=== PATIENT | male | born 1965 | race Caucasian/White ===

== ENCOUNTER 2017-06-08 10:23 | Emergency (ER) | payer MEDICARE, OTHER ==
[~2017-06-08] VITALS: Ht 182.9 cm; Wt 89.4 kg
--- OUTSIDE RECORDS SUMMARY | ~2017-06-08 | XMS | Clinical Summary ---
Demographics + + + | Address | [address] | | | [place] [address] | + + + | Home Phone | | + + + | Preferred Language | Unknown | + + + | Marital Status | | + + + | Adventist Affiliation | Unknown | + + + | Race | Unknown | + + + | Ethnic Group | Unknown | + + + Author + + + | Author | [employer] | + + + | Organization | [facility] [employer] | + + + | Address | Unknown | + + + | Phone | Unavailable | + + + Support + + + + + | Name | Relationship | Address | Phone | + + + + + | Yolanda Montalvo | E[address] | | | | [place] | | | | | [phone] | | + + + + + Care Team Providers + +------+ + | Care Marketing Content Specialist Name | Role | Phone | + +------+ + | Delmer Pérez DO | PP | | + +------+ + Allergies Not on File Current Medications Not on file Active Problems Not on file Social History + +-------+ +--------+------+ | Tobacco Use | Types | Packs/Day | Years | Date | | | | | Used | | + +-------+ +--------+------+ | Never Assessed | | | | | + +-------+ +--------+------+ + + + | Sex Assigned at | Date Recorded | | | | + + + | Not on file | | + + + Last Filed Vital Signs + + + + | Vital Sign | Reading | Time Taken | + + + + | Blood Pressure | 132/90 | 05/12/2009 1:43 PM PDT | + + + + | Pulse | - | - | + + + + | Temperature | - | - | + + + + | Respiratory Rate | - | - | + + + + | Oxygen Saturation | - | - | + + + + | Inhaled Oxygen | - | - | | Concentration | | | + + + + | Weight | 85.3 kg (188 lb) | 05/12/2009 1:43 PM PDT | + + + + | Height | 188 cm (6' 2") | 05/12/2009 1:43 PM PDT | + + + + | Body Mass Index | 24.14 | 05/12/2009 1:43 PM PDT | + + + + Plan of Treatment Not on file Results Not on filefrom Last 3 Months Insurance + +--------+ +------+-------+ + | Payer | Benefi | Subscriber | Type | Phone | Address | | | t Plan | ID | | | | | | / | | | | | | | Group | | | | | + +--------+ +------+-------+ + | MEDICARE | MEDICA | xxxxxxxxxx | | | [address] | | | RE | | | | [place] [id number] | | | IP-OP | | | | | + +--------+ +------+-------+ + + +--------+ +--------+ + + | Guarantor Name | Accoun | Relation to | Date | Phone | Billing Address | | | t Type | Patient | of | | | | | | | | | | + +--------+ +--------+ + + | DAVIAN MONTALVO | Person | Self | [birth year] | Work: | [address] | | | 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
--- OUTSIDE RECORDS SUMMARY | ~2017-06-08 | XMS | Clinical Summary ---
Demographics + + + | Address | [address] | | | [place] [address] | + + + | Home Phone | | + + + | Preferred Language | Unknown | + + + | Marital Status | | + + + | Religion Affiliation | Unknown | + + + | Race | Unknown | + + + | Ethnic Group | Unknown | + + + Author + + + | Author | [employer] | + + + | Organization | [facility] [employer] | + + + | Address | Unknown | + + + | Phone | Unavailable | + + + Support + + + + + | Name | Relationship | Address | Phone | + + + + + | Yolanda Montalvo | ECON | [address] | | | | | [place] | | | | | [phone] | | + + + + + Care Team Providers + +------+ + | Care Emergency Department Director Name | Role | Phone | + [...] RE | | | | [place] [phone] | | | IP-OP | | | [...] [place] | | | [birth year] Home: | [phone] | | | | | | | | | | | | | [phone] | | | | | | | [phone] | | + +--------+ +--------+ + +
[~2017-06-08 10:23] MED LIST: AMLODIPINE BESYL5 MG PO; AUGMENTIN 875-1 EACH PO; BUDEPRION XL150 MG PO; CARVEDILOL12.5 MG PO; CARVEDILOL25 MG PO; DILAUDID2 MG PO; KEFLEX500 MG PO; LISINOPRIL-HCT1 EAC2 PO; LISINOPRIL-HCT1 EACH PO; LISINOPRIL20 MG PO; MELOXICAM15 MG PO; NEURONTIN800 MG PO; NORCO 5-325 TA1 EACH PO; NORTRIPTYLINE H75 MG PO; ONDANSETRON HCL4 MG PO; PERCOCET 7.5-31 EACH PO; PROMETHAZINE HC25 MG PR; ZOFRAN8 MG PO
== END 2017-06-08 10:57 | disposition home or self-care (01) ==
LOC: ED 10:23
DX: S81.812D Laceration without foreign body, left lower leg, subsequent encounter (principal); I10 Essential (primary) hypertension; F17.200 Nicotine dependence, unspecified, uncomplicated; Z79.899 Other long term (current) drug therapy; W22.8XXD Striking against or struck by other objects, subsequent encounter
CPT/HCPCS: 99282

== ENCOUNTER 2018-02-09 11:16 | Emergency (ER) | payer MEDICARE, OTHER ==
[~2018-02-09] VITALS: Ht 182.9 cm; Wt 82.5 kg
[~2018-02-09 11:16] MED LIST changes: +TAMSULOSIN HCL0.4 MG PO
--- OUTSIDE RECORDS SUMMARY | 2018-02-09 11:22 | XMS ---
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 Melody VISIT COUNT (12 MO.) [address] [place] [address] TOTAL 5 NOTE: Visits indicate total known visits. ED/UCC VISIT TRACKING (12 MO.) 02/09/2018 11:17 [facility] TYPE: Emergency COMPLAINT: - VOMITING/URINATION PROBLEM 01/23/2018 15:32 [facility] TYPE: Emergency COMPLAINT: - WEAKNESS,BLOOD PRESSURE PROBLEM 06/17/2017 00:00 [facility] TYPE: Emergency COMPLAINT: - STITCHES REMOVAL 06/08/2017 10:23 [facility] TYPE: Emergency COMPLAINT: - WOUND CHECK DIAGNOSES: - Other nursing home (current) drug therapy - Essential (primary) hypertension - Nicotine dependence, unspecified, uncomplicated - Laceration without foreign body, left lower leg, initial encounter - Laceration without foreign body, left lower leg, subsequent encounter - Striking against or struck by other objects, initial encounter - Striking against or struck by other objects, subsequent encounter 06/05/2017 16:49 [facility] TYPE: Emergency COMPLAINT: - LT LEG LACERATION DIAGNOSES: - Essential (primary) hypertension - Encounter for immunization - Nicotine dependence, unspecified, uncomplicated - Laceration without foreign body, left lower leg, initial encounter - Other long term care social worker (current) drug therapy - Other foreign body or object entering through skin, initial encounter INPATIENT VISIT TRACKING (12 MO.) 01/23/2018 19:[address] [facility] [place] TYPE: Medical Surgical COMPLAINT: - ACUTE KIDNEY INJURY DIAGNOSES: - Essential (primary) hypertension - Viral intestinal infection, unspecified - Hypo-osmolality and hyponatremia - Dehydration - Viral intestinal infection, unspecified - Hyperkalemia - Essential (primary) hypertension - Neuralgia and neuritis, unspecified - Dehydration - Acute kidney failure, unspecified - Other long term care social worker (current) drug therapy - Hypo-osmolality and hyponatremia - Other nonspecific abnormal finding of lung field - Hyperkalemia - Other chronic pain - Other nonspecific abnormal finding of lung field - Nicotine dependence, cigarettes, uncomplicated - Nicotine dependence, cigarettes, uncomplicated - Other nursing home (current) drug therapy - Neuralgia and neuritis, unspecified - Other chronic pain [email or web address]
[2018-02-09] MEDS ORDERED: REGLAN10 MG PO (14:32)
== END 2018-02-09 15:02 | disposition home or self-care (01) ==
LOC: ED 11:16
PROC: 4A0D7LZ Measurement of Urinary Volume, Via Natural or Artificial Opening (ICD-10-PCS; principal; 2018-02-09)
DX: K52.9 Noninfective gastroenteritis and colitis, unspecified (principal); I10 Essential (primary) hypertension; Z86.19 Personal history of other infectious and parasitic diseases; F17.200 Nicotine dependence, unspecified, uncomplicated; Z79.899 Other long term (current) drug therapy
CPT/HCPCS: 51798; 80053; 81001; 83690; 85025; 96361; 96374; 99284-25; 99406; J2405; J7030

== ENCOUNTER 2018-10-13 08:00 | Day surgery (SDC) | payer MEDICARE ==
[~2018-10-13] VITALS: Ht 182.9 cm; Wt 83.9 kg
[~2018-10-13 08:00] MED LIST changes: +REGLAN10 MG PO
--- NOTE | 2018-10-13 09:56 | NUR ---
10/13/18 0956 Suzanne Kirk 0944- PT ARRIVES TO PACU NONAROUSABLE TO NOXIOUS STIMULI. RESP EVEN AND UNLABORED. OXYGEN SAT HIGH 90'S TO 100% ON 6L VIA MASK.
--- NOTE | 2018-10-15 10:32 | OR ---
[facility] [address], [place] [address] Signed DATE OF OPERATION: 10/13/2018 SURGEON: Fadi Bradley MD PREOPERATIVE DIAGNOSES: 1. Paternal uncle with colon cancer at age 58. 2. Personal history of colonic polyps in 2016 at age 50. 3. Tattoo at 25 cm. 4. Minimal diverticulosis. 5. Diarrhea. POSTOPERATIVE DIAGNOSES: 1. Tattoo at 25 cm. 2. A 3 to 5 mm polyps at proximal right colon, hepatic flexure; 110 cm, 38 cm, 36 cm, and 5 cm. 3. Minimal sigmoid diverticulosis. 4. Zftqduf-lk-igqaulld internal hemorrhoids. PROCEDURE: Colonoscopy with hot biopsy. ESTIMATED BLOOD LOSS: None. INDICATIONS: Davian is a 53-year-old gentleman, asked to see me for a followup colonoscopy. His paternal uncle had colon cancer at age 58. Davian had multiple colonic polyps removed at age 50 and has a tattoo at 25 cm. He is known to have minimal diverticulosis and some diarrhea. In the office, I gave Davian a pamphlet on colonoscopy and we looked at that together along with the risks including, but not limited to gas bloating, crampy abdominal pain, bleeding, perforation, requiring surgery, and missed diagnosis. In addition, we used 9 mg of Versed and 300 mcg of fentanyl for his previous colonoscopy, and he was still awake. He continues to have issues with chronic pain and requires daily marijuana. Consequently, we asked an anesthesia provider to help with increased monitoring sedation with propofol. That proved to be a louis decision. He had expressed understanding and wished to proceed. DESCRIPTION OF PROCEDURE: Davian was taken into our endoscopy suite and placed in the left lateral decubitus position. He was given IV sedation with propofol per our nurse emergency response technician. A digital Electronically Signed By: FADI BRADLEY MD 10/15/18 1032 PATIENT NAME: DAVIAN PRINCE OPERATIVE REPORT DATE OF : 67 REPORT #: [id number] PHYSICIAN: FADI BRADLEY MD PCP: KENY HALL MD REPORT IS CONFIDENTIAL AND NOT TO BE RELEASED WITHOUT AUTHORIZATION [facility] [address], [place] [address] Signed rectal exam was performed and his prostate gland is not enlarged. However, it is indurated. The left is more prominent than the right. The adult colonoscope was introduced and advanced all around into the cecum under direct visualization of camera without difficulty. His prep was good. The scope was then slowly withdrawn. The above-mentioned polyps were easily removed with the help of hot biopsy forceps. We could easily see the tattoo at 25 cm. No evidence of any recurrent polyps in that area. He does have some diverticula in the sigmoid colon. They were minimal in size, minimal in number, and scattered about. Upon retroflexion of scope, he does have dvezynn-wb-wlrfrxxm internal hemorrhoids. After this, the gas was suctioned out. Colonoscope removed. Davian tolerated the procedure quite well. RECOMMENDATIONS: Davian to follow up in 7 to 14 days to review his results. I suspect he will stay on the 5-year rotation. Fadi Bradley MD ALB/MODL /[id number] cc: MD Keny Torres MD Copies: FADI BRADLEY MD, MALCOLM MD ~ Electronically Signed By: FADI BRADLEY MD 10/15/18 1032 PATIENT NAME: DAVIAN PRINCE OPERATIVE REPORT DATE OF : 67 REPORT #: [id number] PHYSICIAN: FADI BRADLEY MD PCP: KENY HALL MD REPORT IS CONFIDENTIAL AND NOT TO BE RELEASED WITHOUT AUTHORIZATION
--- NOTE | 2018-10-16 15:25 | PATH ---
[facility] [address] [place] [address] Signed SPECIMEN(S): A COLON POLYP AT 110 CM SPECIMEN(S): B ASCENDING COLON POLYP SPECIMEN(S): C HEPATIC FLEXURE COLON POLYP SPECIMEN(S): D COLON POLYP AT 38 CM SPECIMEN(S): E COLON POLYP AT 36 CM SPECIMEN(S): F COLON POLYP AT 5 CM SPECIMEN SOURCE: A. COLON POLYP AT 110 CM B. ASCENDING COLON POLYP C. HEPATIC FLEXURE COLON POLYP D. COLON POLYP AT 38 CM E. COLON POLYP AT 36 CM F. COLON POLYP AT 5 CM CLINICAL HISTORY: No preop or clinical information is given on requisition. MICROSCOPIC DESCRIPTION: Histologic sections of all submitted blocks are examined by light microscopy. These findings, together with the gross examination, support the pathologic diagnosis. FINAL PATHOLOGIC DIAGNOSIS: A. Mucosa, colon at 110 cm, biopsy: - Tubular adenoma. B. Mucosa, ascending colon, biopsy: - Surface features suggestive but not diagnostic of hyperplastic polyp (See comment). C. Mucosa, colon at hepatic flexure, biopsy: - Tubular adenoma. D. Mucosa, colon at 38 cm, biopsy: - Tubular adenoma. E. Mucosa, colon at 36 cm, biopsy: - Tubular adenoma. F. Mucosa, colon at 5 cm, biopsy: - Hyperplastic polyp. COMMENT: B Multiple levels over three slides are examined. No adenomatous change or full thickness hyperplastic change is seen. LJA:cml:[id number] PATIENT NAME: DARIA PRINCE NICOLE PATHOLOGY DATE OF : 67 REPORT #: [id number] PHYSICIAN: JOLEEN GILBERT PCP: FRANCISCO HALL MD REPORT IS CONFIDENTIAL AND NOT TO BE RELEASED WITHOUT AUTHORIZATION [facility] [address], [place] [address] Signed GROSS DESCRIPTION: Six specimens are received in six containers, labeled "DP." A. The specimen, labeled "DP, colon polyp at 110 cm," is received in formalin and consists of two, 0.3 and 0.4 cm miguel fragments. Specimen is entirely submitted in cassette (A1). B. The specimen, labeled "DP, ascending colon polyp," is received in formalin and consists of a single 0.2 cm miguel fragment admixed with debris. Specimen is entirely submitted in cassette (B1). C. The specimen, labeled "DP, hepatic flexure polyp," is received in formalin and consists of two, 0.2 and 0.3 cm miguel fragments admixed with debris. Specimen is entirely submitted in cassette (C1). D. The specimen, labeled "DP, colon polyp at 38 cm," is received in formalin and consists of a single 0.3 cm miguel fragment. Specimen is entirely submitted in cassette (D1). E. The specimen, labeled "DP, colon biopsy at 36 cm," is received in formalin and consists of two, 0.2 and 0.3 cm miguel fragments. Specimen is entirely submitted in cassette (E1). F. The specimen, labeled "DP, colon biopsy at 5 cm," is received in formalin and consists of three, 0.2-0.3 cm miguel fragments. Specimen is entirely submitted in cassette (F1). AM (under the direct supervision of a pathologist) The Gross Description was prepared using a voice recognition system. The report was reviewed for accuracy; however, sound-alike word errors, addition and/or deletions may occur. If there is any question about this report, please contact Client Services. PERFORMING LABORATORY: The technical component was performed by [facility], [address] [place] [id number] (Beef Specialist: Lala Zamarripa MD; CLIA# [id number]). Professional interpretation was performed by [facility], [address] [address] (Beef Specialist: Kelby Saavedra MD; CLIA# [id number]). Diagnostician: Kelby Saavedra MD Pathologist Electronically Signed 10/16/2018 Copies: PATIENT NAME: DARIA PRINCE NICOLE PATHOLOGY DATE OF : 67 REPORT #: [id number] PHYSICIAN: JOLEEN PATHOLOGY PCP: FRANCISCO HALL MD REPORT IS CONFIDENTIAL AND NOT TO BE RELEASED WITHOUT AUTHORIZATION [facility] [address], [place] [address] Signed ~ PATIENT NAME: DARIA PRINCE PATHOLOGY DATE OF : 67 REPORT #: [id number] PHYSICIAN: JOLEEN GILBERT PCP: FRANCISCO HALL MD REPORT IS CONFIDENTIAL AND NOT TO BE RELEASED WITHOUT AUTHORIZATION
== END 2018-10-13 10:15 | disposition home or self-care (01) ==
LOC: OPS 08:00 → DS 08:00 → OPS 09:00 → DS 09:00 → OPS 10:15
PROVIDERS: Colon & Rectal Surgery
PROC: 0DBK8ZZ Excision of Ascending Colon, Via Natural or Artificial Opening Endoscopic (ICD-10-PCS; 2018-10-13)
PROC: 0DBL8ZZ Excision of Transverse Colon, Via Natural or Artificial Opening Endoscopic (ICD-10-PCS; 2018-10-13)
PROC: 0DBE8ZZ Excision of Large Intestine, Via Natural or Artificial Opening Endoscopic (ICD-10-PCS; principal; 2018-10-13 09:00)
DX: D12.2 Benign neoplasm of ascending colon (principal); D12.3 Benign neoplasm of transverse colon; D12.6 Benign neoplasm of colon, unspecified; K63.5 Polyp of colon; K57.30 Diverticulosis of large intestine without perforation or abscess without bleeding; R19.7 Diarrhea, unspecified; K64.8 Other hemorrhoids; I10 Essential (primary) hypertension; K21.9 Gastro-esophageal reflux disease without esophagitis; M19.90 Unspecified osteoarthritis, unspecified site; F17.210 Nicotine dependence, cigarettes, uncomplicated; F12.90 Cannabis use, unspecified, uncomplicated; G89.4 Chronic pain syndrome; Z98.890 Other specified postprocedural states; Z86.010 Personal history of colon polyps; Z80.0 Family history of malignant neoplasm of digestive organs; Z79.899 Other long term (current) drug therapy
CPT/HCPCS: J2250; J2704; J3010; J7120

== ENCOUNTER 2020-07-12 17:29 | Emergency (ER) | payer MEDICARE, OTHER ==
[~2020-07-12] VITALS: Ht 182.9 cm; Wt 90.7 kg
== END 2020-07-12 20:19 | disposition home or self-care (01) ==
LOC: ED 17:29
DX: S86.111A Strain of other muscle(s) and tendon(s) of posterior muscle group at lower leg level, right leg, initial encounter (principal); X58.XXXA Exposure to other specified factors, initial encounter; I10 Essential (primary) hypertension; F17.200 Nicotine dependence, unspecified, uncomplicated; Z79.899 Other long term (current) drug therapy
CPT/HCPCS: 99283

== ENCOUNTER 2021-05-13 10:25 | Day surgery (SDC) | payer MEDICARE, OTHER ==
[~2021-05-13] VITALS: Ht 182.9 cm; Wt 96.4 kg
[~2021-05-13 10:25] MED LIST changes: +ONDANSETRON ODT8 MG PO; +SILDENAFIL20 MG PO
--- NOTE | 2021-05-13 12:40 | NUR ---
05/13/21 1240 Mallorie Lua 1228-PATIENT ARRIVED TO PACU ON 10L MASK NONAROUSABLE ORAL AIRWAY IN PLACE PLAYING PRONE. DRESSING CDI TO LEFT LOWER BACK. SR. IVF INFUSING. 1231-PATIENT LAYING PRONE NONAROUSABLE MOVING HEAD NOT FOLLOWING COMMANDS ORAL AIRWAY REMOVED. 6L MASK RR EVEN. 1240-PATIENT AWAKE REPOSITIONED SELF TO BACK WITH RNS ASSISTANCE HOB ELEVATED.
--- NOTE | 2021-06-04 09:34 | PATH ---
[facility] [address] [facility] [place], [place] [address] Signed THIS IS AN ADDENDUM REPORT SPECIMEN(S): A BONE MARROW - CORE SPECIMEN(S): B BONE MARROW - ASPIRATION SPECIMEN(S): C FLOW CYTOMETRY, EDTA ASP CLINICAL HISTORY: 55-year-old male with polycythemia and leukocytosis. Evaluate MPN DIAGNOSIS SUMMARY: A. Peripheral blood - No abnormal morphologic findings. B. Bone marrow aspirate smears, bone marrow core biopsy and clot section: - Slightly hypercellular bone marrow with trilineage progressive hematopoiesis. - Negative for morphologic features of myelodysplastic syndrome (MDS). - Negative for definite morphologic features of myeloproliferative neoplasm. - Negative for increase in plasma cells or infiltrative bone marrow processes. - Please see Diagnostic Comment. DIAGNOSTIC COMMENT: The bone marrow is slightly hypercellular. However, trilineage progressive hematopoiesis is noted. No definite diagnostic features of myeloproliferative neoplasm are identified. Clinical concern for Myeloproliferative neoplasm (MPN) is noted. FISH for BCR/ABL and molecular studies for JAK2 with reflex to CALR and MPL are pending and will be reported in an addendum. This case is reviewed and dictated by Kely Reddy MD. Board-certified hematopathologist. NA:clm:C2NR PERIPHERAL BLOOD: HEMOGRAM ([facility], 05/13/2021): WBC 7.7 K/uL, RBC 5.63 M/uL, HGB 16.4 g/dL, HCT 49.3%, MCV 87.5 fL, MCH 29.1 pg, MCHC 33.2 g/dL, RDW 14.3%, PLT 217 K/uL, MPV 8.4 fL. DIFFERENTIAL (manual): 57% neutrophils, 35% lymphocytes, 6% monocytes, 1% eosinophils, 1% basophils. Review of the peripheral blood smear and the CBC data demonstrates that the RBCs are normal in number and are normocytic and normochromic with no anemia PATIENT NAME: DARIA PRINCE PATHOLOGY DATE OF : 67 REPORT #: [id number] PHYSICIAN: JOLEEN GILBERT PCP: FRANCISCO HALL MD REPORT IS CONFIDENTIAL AND NOT TO BE RELEASED WITHOUT AUTHORIZATION [facility] [address] [place], [place] [address] Signed present. No rouleaux formation is identified. No nucleated RBCs are seen. The WBCs are normal in number and distribution. The granulocytes show unremarkable morphology. No immature cells or blasts are seen. The platelets are normal in number and unremarkable in morphology. BONE MARROW: BONE MARROW ASPIRATE SMEARS: The bone marrow aspirate smears are adequately cellular for evaluation. Trilineage hematopoiesis is present with progressive ordinary maturation. There is no increase in blasts noted. The M:E ratio appears normal. No dyshematopoiesis is identified. The megakaryocytes are scattered and appear normal in number and morphology. BONE MARROW DIFFERENTIAL COUNT (200 cells): 2% blasts, 3% promyelocytes, 11% myelocytes, 33% segmented neutrophils, 10% lymphocytes, 1% monocytes, 3% eosinophils, 37% erythroid. BONE MARROW CORE BIOPSY AND CLOT SECTION (CELL BLOCK): The bone marrow core biopsy demonstrates slightly hypercellular bone marrow for age with an average of 70%. Trilineage hematopoiesis is present with progressive ordinary maturation. There are no lymphoid aggregates, granulomas, or metastatic tumor cells present. The megakaryocytes are scattered and appear normal in number and distribution. Occasional small micromegakaryocytes are encountered. The cell block shows similar findings. SPECIAL STAINS (performed with appropriate reactive control and show the following results): - Iron (aspirate smears): Storage iron present, negative for ring sideroblasts. - Iron (block B): Storage iron present, negative for ring sideroblasts. - Reticulin stain: Mild increase in bone marrow reticulin fibrosis (MF-1). IMMUNOHISTOCHEMICAL STAINS (performed on block A1 with appropriate reactive control): - CD34: Highlights scattered positive cells with no increase in blasts noted. - CD117: Highlights scattered positive cells. - CD71: Highlights erythroid precursors with normal pattern of distribution. - MPO: Highlights myeloid precursors with normal pattern of distribution. - Factor VIII: Highlights normal number of megakaryocytes. NA:clm FLOW CYTOMETRY: Bone marrow aspirate, flow cytometry: PATIENT NAME: DAIRA PRINCE PATHOLOGY DATE OF : 67 REPORT #: [id number] PHYSICIAN: JOLEEN PATHOLOGY PCP: FRANCISCO HALL MD REPORT IS CONFIDENTIAL AND NOT TO BE RELEASED WITHOUT AUTHORIZATION [facility] [address] [place], [place] [address] Signed - No increase in blasts (0.6% myeloblasts). - Normal myeloid maturation. - No atypical lymphoid cell population. - See comment. COMMENT: While no hematopoietic abnormality is detected in this study, correlation with clinical, morphologic, and genetic findings is recommended for full interpretation and to assess for disease processes not fully examined by flow cytometry analysis, including myelodysplastic syndrome and myeloproliferative neoplasm. FLOW CYTOMETRY ANALYSIS: FLOW DIFFERENTIAL (% Total CD45 vs. SSC gating): Myeloid 87%; Lymphoid 6%; Monocyte 2%; Dim CD45/Blast: 0.6%. Cell Count: 9.9 x 10*3/uL. POPULATION ANALYSIS: BLASTS: Analysis of the dim CD45 gate demonstrates 0.6% myeloblasts by CD34/CD117. LYMPHOID CELLS: The lymphocyte gate comprises 6% of total events and includes 89% T-cells with a CD4:CD8 ratio of 1.4:1 and normal orr T-cell antigen expression. 4% of lymphocytes are polyclonal B-cells with a kappa:lambda ratio of 1.3:1. The remainders are NK-cells. MYELOID CELLS: The myeloid population comprises 87% of the total events. No aberrant immunophenotypic expression is detected. MONOCYTES: The monocyte population comprises 2% of the total events. Monocytes are not increased. No aberrant immunophenotypic expression is detected. PLASMA CELLS: 0.2% plasma cells are detected in the screening gate neg-dimCD45/CD38. Plasma cells are CD45 dim and positive for CD19. ANTIBODIES USED: KAPPA, LAMBDA, CD20, CD10, CD19, CD23, CD38, CD16, CD56, CD8, CD5, CD2, CD4, CD7, CD3, CD14, CD33, CD13, HLADR, CD34, CD117, CD15, CD45. TOTAL ANTIBODIES USED: 23. JNB FINAL DIAGNOSIS PERFORMED BY: Kely Reddy MD, [facility], May 14 2021 11:29AM MOLECULAR / PCR: Pending, to be reported in an addendum. GROSS DESCRIPTION: Two specimens are received in two containers, labeled "DP." A. The specimen, labeled "DP, core," is received in formalin and consists of two cylindrical bone core fragments measuring 0.2 in diameter and 0.9 to 1.2 in length. The specimen is entirely PATIENT NAME: DARIA PRINCE PATHOLOGY DATE OF : 67 REPORT #: [id number] PHYSICIAN: JOLEEN PATHOLOGY PCP: FRANCISCO HALL MD REPORT IS CONFIDENTIAL AND NOT TO BE RELEASED WITHOUT AUTHORIZATION [facility] [address] [place], [place] [address] Signed submitted in cassette A1 following decalcification in Immunocal. Cold ischemic time: Cannot be determined because of lack of information Approximate time in formalin: Five hours B. The specimen, labeled "DP, clot," is received in formalin and consists of thickened clot material measuring 2.5 x 2.0 x 0.4 in aggregate. The specimen is filtered and entirely submitted in cassette B1. Bone marrow inventory also includes: Two peripheral smears, one EDTA tube bone marrow, two heparin tubes AT (under the direct supervision of a pathologist) The Gross Description was prepared using a voice recognition system. The report was reviewed for accuracy; however, sound-alike word errors, addition and/or deletions may occur. If there is any question about this report, please contact Client Services. ADDITIONAL NOTES: Immunohistochemical and/or in situ hybridization studies were performed on this case with the appropriate positive controls that react as expected. This test was developed and its performance characteristics determined by [facility]. It has not been cleared or approved by the U.S. Food and Drug Administration. The FDA has determined that such clearance or approval is not necessary. This test is used for clinical purposes. It should not be regarded as investigational or for research. [facility] is certified under the Clinical Laboratory Improvement Amendments of 1988 (CLIA) as qualified to perform high complexity clinical laboratory testing. This assay has not been validated for specimens that have been decalcified. In this case, certain antibodies were performed by both immunohistochemistry and flow cytometry analysis because flow cytometry analysis did not fully explain all the light microscopic findings. Immunohistochemistry aided in the analysis. Both methods are deemed medically necessary in this case. This test was developed and its performance characteristics determined by [facility]. It has not been cleared or approved by the US Food and Drug Administration. The FDA does not require this test to go through premarket FDA review. This test is used for clinical purposes. It should not be regarded as investigational or for research. This laboratory is certified under the Clinical Laboratory Improvement Amendments (CLIA) as qualified to perform high PATIENT NAME: DARIA PRINCE PATHOLOGY DATE OF : 67 REPORT #: [id number] PHYSICIAN: JOLEEN GILBERT PCP: FRANCISCO HALL MD REPORT IS CONFIDENTIAL AND NOT TO BE RELEASED WITHOUT AUTHORIZATION [facility] [address] [place] [phone] Signed complexity clinical laboratory testing. PERFORMING LABORATORY: The technical component was performed by [facility], [address] [address] (CLIA#: [id number]). Professional interpretation was performed by [facility], [facility], [address] [place] [address] (CLIA#: [id number]). A portion of the technical component was performed by [facility], [address] [place] [address] (CLIA# [id number]). A portion of the technical component was performed by [facility], [address] [place], [place] [address] [place] [address] (CLIA#: [id number]). Professional interpretation was performed by [facility], [facility], [address] [place] [address] (CLIA#: [id number]). IMAGES: A: [id number] A: [id number] REASON FOR ADDENDUM: To add results of additional testing. Bone marrow, cytogenetics: Karyotype: QNS Interpretation: QNS Test Detail: Metaphases Counted: N/A Metaphases Analyzed: N/A Metaphases Karyotyped: N/A Culture Type: N/A Banding Technique: N/A Banding Resolution: N/A The Accessioning Component, Technical Component Processing, Analysis and Professional Component of this test was completed at [facility] [place], [address] [place] [address], [place] / [address] / [phone] / CLIA #[id number] / Water Supervisor(s): Bon Hancock M.D. (Accession / CaseNo: [id number] / [id number]). The performance characteristics of this test have been determined by the performing laboratory. This test has not been approved by the FDA. The FDA has determined such clearance or approval is not necessary. This laboratory is CLIA certified to perform high complexity PATIENT NAME: DARIA PRINCE PATHOLOGY DATE OF : 67 REPORT #: [id number] PHYSICIAN: JOLEEN PATHOLOGY PCP: FRANCISCO HALL MD REPORT IS CONFIDENTIAL AND NOT TO BE RELEASED WITHOUT AUTHORIZATION [facility] [address] [place], [place] [address] Signed clinical testing. Images that may be included within this report are safety representative of the patient but not all testing in its entirety and should not be used to render a result. The CPT codes provided with our test descriptions are based on AMA guidelines and are for informational purposes only. Correct CPT coding is the sole responsibility of the billing libertarian. Please direct any questions regarding coding to the payer being billed. Bone marrow, BCR/ABL1/ASS1 t(9:22): Results: Normal Interpretation: t(9;22): Not Detected Fluorescence in situ hybridization (FISH) analysis was performed using a tricolor, dual fusion BCR/ABL1 probe set used to detect the (9;22) translocation associated with CML and less commonly ALL or AML. The tricolor probe set also detects derivative chromosome 9 deletions. Counts for all probe signals were within the normal reference range. This finding represents a NORMAL result. Probe Set Detail: BCR/ABL1/ASS1 t(9;22): nuc bernardo(ASS1,ABL1,BCR)x2[200] Comments: The results of this assay have been determined within the limitations described and should not be used interchangeably with resulting values from other methods or kits. These results are intended to be used as an adjunct to other concurrent testing in patient care management. Therefore, the presence or absence of a malignant disease cannot be determined based solely on these results. Clinical correlation is advised. Nuclei Scored: 200 Probe set: BCR/ABL1/ASS1 t(9;22) Scoring method: Computer assisted technology. CPT code: 21725 # of units: 1 All controls were within expected ranges. The Accessioning Component, Technical Component Processing and Professional Component of this test was completed at [facility] [place], [address] [place] [address], [place] / [address] / [phone] / CLIA #[id number] / Water Supervisor(s): Bon Hancock M.D. (Accession / PATIENT NAME: DARIA PRINCE PATHOLOGY DATE OF : 67 REPORT #: [id number] PHYSICIAN: JOLEEN PATHOLOGY PCP: FRANCISCO HALL MD REPORT IS CONFIDENTIAL AND NOT TO BE RELEASED WITHOUT AUTHORIZATION [facility] [address] [place] [address] Signed Case No: [id number] / [id number]). The Technical Component Analysis of this test was completed at [facility] [place], [facility], [address], [place], [place] / [address] / [phone] / CLIA# [id number] / Water Supervisor(s): Dr. Laci Aguilera. [facility] FISH test uses either FDA cleared and/or analyte specific reagent (ASR) probes. This test was developed and its performance characteristics determined by [facility] in [place], [place]. It has not been cleared or approved by the U.S. Food and Drug Administration (FDA). The FDA has determined that such clearance or approval is not necessary. This test is used for clinical purposes and should not be regarded as investigational or for research. This laboratory is regulated under CLIA '88 as qualified to perform high complexity testing.Interphase FISH does not include examination of the entire chromosomal complement. Clinically significant anomalies detectable by routine banded cytogenetic analysis may still be present. Consider reflex banded cytogenetic analysis. Images that may be included within this report are safety representative of the patient but not all testing in its entirety and should not be used to render a result. The CPT codes provided with our test descriptions are based on AMA guidelines and are for informational purposes only. Correct CPT coding is the sole responsibility of the billing libertarian. Please direct any questions regarding coding to the payer being billed. To add results of additional testing. Bone marrow, JAK2 V617F Mutation Analysis - Qualitative: - JAK2 V617F Mutation: Not detected. Clinical Significance: The JAK2 V617F mutation has been reported in >80% of the patients with polycythemia vera (PV), 30-50% of patients with either essential thrombocythemia (ET) or primary myelofibrosis (PMF). This mutation is not detected in normal individuals. A small subset of patients with myeloproliferative neoplasms (MPN) that are negative for the JAK2 V617F mutation will harbor JAK2 mutations in exon 12. PATIENT NAME: DARIA PRINCE PATHOLOGY DATE OF : 67 REPORT #: [id number] PHYSICIAN: JOLEEN GILBERT PCP: FRANCISCO HALL MD REPORT IS CONFIDENTIAL AND NOT TO BE RELEASED WITHOUT AUTHORIZATION [address] [address] Signed More rare mutations are detected in exons 13 and 14. JAK2 mutations can be used to differentiate reactive conditions from neoplastic process. Methodology: Total nucleic acid was extracted from patient's plasma or PB/BM cells. The primer pair was designed to encompass the JAK2 V617F point mutation located in chromosome 9p24. The PCR product was then purified and sequenced in both forward and reverse directions using high-sensitivity [place] sequencing which improves the lower detection limit to approximately 1% mutated DNA in a wild-type background. The resulting sequence was compared to GenBank Acc# [id number] sequence. Various factors including quantity and quality of nucleic acid, sample preparation and sample age can affect assay performance. References: 1. Viral Salazar, et al. A unique clonal JAK2 mutation leading to constitutive signalling causes polycythaemia vera. Nature. 2005; 434:1144-8. 2. Yamila Proctor et al. A sqop-lz-vdudzsei mutation of JAK2 in myeloproliferative disorders. N Engl J Med. 2005; 352:1779-90. 3. Corrine AM, Andrea E, Oswald P, et al; MPD Research Consortium. Prospective identification of high-risk polycythemia vera patients based on JAK2(V617F) allele burden. Leukemia. 2007;21(9):1952-9. PMID: 02779138. Test/Panel: JAK2 V617F Mutation Analysis - Qualitative [employer]X CPT: 04726 A CPT: 07969 The Accessioning Component, Technical Component Processing, Analysis and Professional Component of this test was completed at [facility] [place], [address] [place] [address] / [address] / [phone] / CLIA #[id number] / Water Supervisor(s): Bon Hancock M.D. (Accession / Case No: [id number] / [id number]). The performance characteristics of this test have been determined by [facility]. This test has not been approved by the FDA. The FDA has determined such clearance or approval is not necessary. This laboratory is CLIA certified to perform high complexity clinical testing. Images that may be included within this report are safety representative of the patient but not all testing in its entirety and should not be used to render a result. The CPT codes provided with our test descriptions are based on [employer] and AMA guidelines and are for informational purposes only. Correct CPT coding is the PATIENT NAME: DARIA PRINCE PATHOLOGY DATE OF : 67 REPORT #: [id number] PHYSICIAN: JOLEEN GILBERT PCP: FRANCISCO HALL MD REPORT IS CONFIDENTIAL AND NOT TO BE RELEASED WITHOUT AUTHORIZATION [address] [address] Signed sole responsibility of the billing libertarian. Please direct any questions regarding coding to the payer being billed. Diagnostician: Lang Pro DO Pathologist Diagnostician: Bobby Troncoso MD Pathologist Diagnostician: Kely Reddy MD, FACP Pathologist Electronically Signed 06/04/2021 Copies: ~ PATIENT NAME: DARIA PRINCE PATHOLOGY DATE OF : 67 REPORT #: [id number] PHYSICIAN: JOLEEN GILBERT PCP: FRANCISCO HALL MD REPORT IS CONFIDENTIAL AND NOT TO BE RELEASED WITHOUT AUTHORIZATION
== END 2021-05-13 13:00 | disposition home or self-care (01) ==
LOC: OPS 10:25 → DS 10:25 → OPS 12:00 → DS 12:00 → OPS 13:00
PROVIDERS: ATTEND Specialist
PROC: 07DR3ZX Extraction of Iliac Bone Marrow, Percutaneous Approach, Diagnostic (ICD-10-PCS; principal; 2021-05-13 12:00)
DX: C94.6 Myelodysplastic disease, not elsewhere classified (principal); I10 Essential (primary) hypertension; F17.210 Nicotine dependence, cigarettes, uncomplicated; Z20.822 Contact with and (suspected) exposure to COVID-19
CPT/HCPCS: 01112; 36415; 85025; 88184; 88185; 88305; 88311; 88313; 88341; 88342; J2704; J7121

== ENCOUNTER 2022-02-09 22:59 | Emergency (ER) | payer MEDICARE ==
[~2022-02-09] VITALS: Ht 182.9 cm; Wt 95.7 kg
[~2022-02-09 22:59] MED LIST changes: +LOSARTAN POTASS25 MG PO; +OLMESARTAN-HCT1 EACH PO
--- OUTSIDE RECORDS SUMMARY | 2022-02-09 23:02 | XMS ---
PreManage Notification: DARIA PRINCE Security Tdp Displays Analyst Events No recent Security Events currently on file CRITERIA MET - [facility] - 2 Visits in 30 Days - PDMP CARE PROVIDERS JANIS HALLLM Internal Medicine 02/10/2018-Current PHONE: Unknown Dede has no Care Guidelines for this patient. E.Karen VISIT COUNT (12 MO.) 2 [facility] TOTAL 2 NOTE: Visits indicate total known visits. ED/UCC VISIT TRACKING (12 MO.) 02/09/2022 22:59 [facility] [place] TYPE: Emergency COMPLAINT: - ABD PAIN, FLANK PAIN 02/03/2022 18:48 [facility] [place] TYPE: Emergency COMPLAINT: - URINE PROBLEM INPATIENT VISIT TRACKING (12 MO.) 02/03/2022 18:49 [facility] [place] TYPE: Observation COMPLAINT: - ACUTE RENAL FAILURE, SEPSIS DIAGNOSES: - Benign prostatic hyperplasia without lower urinary tract symptoms - Emphysema, unspecified - Hypo-osmolality and hyponatremia - Muscle wasting and atrophy, not elsewhere classified, unspecified site - Adverse effect of carbonic-anhydrase inhibitors, benzothiadiazides and other diuretics, initial encounter - Essential (primary) hypertension - Other chronic pain - Contact with and (suspected) exposure to COVID-19 - Acute kidney failure, unspecified - Benign neoplasm of right adrenal gland - Adverse effect of other antihypertensive drugs, initial encounter [email or web address]
== END 2022-02-10 00:36 | disposition home or self-care (01) ==
LOC: ED 22:59
DX: R10.9 Unspecified abdominal pain (principal); I10 Essential (primary) hypertension; F17.200 Nicotine dependence, unspecified, uncomplicated; Z88.8 Allergy status to other drugs, medicaments and biological substances; Z79.899 Other long term (current) drug therapy
CPT/HCPCS: 36415; 80053; 81003; 85025; 96374; 99283-25; A9270; J2405

== ENCOUNTER 2023-09-15 19:42 | Emergency (ER) | payer MEDICARE, OTHER ==
[~2023-09-15] VITALS: Ht 182.9 cm; Wt 75.6 kg
[~2023-09-15 19:42] MED LIST changes: +COZAAR25 MG PO; +HYDROCODON-ACE1 EA10 PO; +OLMESARTAN-HCT1 EACH
--- OUTSIDE RECORDS SUMMARY | 2023-09-15 19:43 | XMS ---
PreManage Notification: DARIA PRINCE Security Electronic Warfare Specialist Events No recent Security Events currently on file CRITERIA MET - PDMP CARE PROVIDERS [facility] HALLLM Internal Medicine 02/10/2018-Current PHONE: Unknown Dede has no Care Guidelines for this patient. ETy VISIT COUNT (12 MO.) 2 [facility] TOTAL 2 NOTE: Visits indicate total known visits. ED/UCC VISIT TRACKING (12 MO.) 09/15/2023 19:42 [facility] TYPE: Emergency COMPLAINT: - STOMACH PAIN 04/26/2023 11:44 [facility] TYPE: Emergency COMPLAINT: - ABD PAIN DIAGNOSES: - Allergy status to other drugs, medicaments and biological substances - Aneurysm of other specified arteries - Essential (primary) hypertension - Hydrocele, unspecified - Left testicular pain - Nicotine dependence, unspecified, uncomplicated - Other intermission coordinator (current) drug therapy INPATIENT VISIT TRACKING (12 MO.) No inpatient visits to display in this time frame [email or web address]
[2023-09-15] MEDS ORDERED: SODIUM CHLORIDE 0.9% 1,000 ML IV ONE (20:00)
[2023-09-15] MEDS ORDERED: MORPHINE SULFATE 4 MG/ML VIAL IV ONE (20:00)
[2023-09-15 20:14] LABS: HEMATOCRIT 50.7 % (35.0-50.0); HEMOGLOBIN 17.1 g/dL (12.0-18.0)
[2023-09-15 20:16] LABS: BASOPHILS 1.4 % (0-2); EOSINOPHILS 0.4 % (0-6); LYMPHOCYTES 19.5 % (24-44); MCH 29.8 (27-36); MCHC 33.7 g/dl (30-36); MCV 88.6 fl (81-99); MONOCYTES 8.7 % (0-12); PLATELET COUNT 287 K/uL (140-440); RBC 5.72 M/ul (4.3-5.7); RDW 14.5 (10.5-15.0)
[2023-09-15 20:28] LABS: ALBUMIN 3.8 g/dL (3.4-5.0); ALBUMIN/GLOBULIN RATIO 0.95 (1.1-2.4); ANION GAP 13.8 (7-21); BILIRUBIN, TOTAL 0.3 ng/dL (0.2-1.0); BUN/CREATININE RATIO 28.43 (6.0-28.6); CALCIUM 9.4 mg/dL (8.5-10.1); CREATININE, SERUM 1.02 mg/dL (0.70-1.30); POTASSIUM 3.8 mmol/L (3.5-5.1); PROTEIN, TOTAL 7.8 g/dL (6.4-8.2)
[2023-09-15 20:36] LABS: BILIRUBIN, URINE NEGATIVE (negative); BLOOD/HGB, URINE NEGATIVE (Negative); KETONE, URINE NEGATIVE (Negative); LEUK ESTERASE, URINE NEGATIVE (negative); NITRITE, URINE NEGATIVE (negative)
[2023-09-15] MEDS ORDERED: REGLAN10 MG PO (21:18)
[2023-09-15 21:38] VITALS: BP 117/81
== END 2023-09-15 21:38 | disposition home or self-care (01) ==
LOC: ED 19:42
PROVIDERS: Family Medicine
DX: K31.89 Other diseases of stomach and duodenum (principal); I10 Essential (primary) hypertension; F17.200 Nicotine dependence, unspecified, uncomplicated; Z79.899 Other long term (current) drug therapy; Z88.8 Allergy status to other drugs, medicaments and biological substances
CPT/HCPCS: 36415; 74177; 80053; 81003; 83690; 85025; 99284-25; J2270; J7030; Q9967

== ENCOUNTER 2024-02-07 11:16 | Emergency (ER) | payer MEDICARE, OTHER ==
[~2024-02-07] VITALS: Ht 182.9 cm; Wt 80.7 kg
[2024-02-07 11:49] LABS: BILIRUBIN, URINE NEGATIVE (negative); BLOOD/HGB, URINE NEGATIVE (Negative); KETONE, URINE NEGATIVE (Negative); LEUK ESTERASE, URINE NEGATIVE (negative); NITRITE, URINE NEGATIVE (negative)
[2024-02-07 12:01] LABS: BACTERIA, URINE NONE SEEN /hpf (negative); CASTS, URINE NONE SEEN \\lpf; COLLECTION TYPE, URINE CLEAN CATCH; CRYSTALS, URINE NONE SEEN (0-1+); EPITHELIAL CELLS, URINE 0 /lpf (0-1+); RED BLOOD CELLS, URINE 0-1 /hpf (0-5); REFLEX CULTURE, URINE No (No); WHITE BLOOD CELLS, URINE 0-1 /HPF (0-5)
[2024-02-07 13:15] VITALS: BP 129/87
== END 2024-02-07 13:15 | disposition home or self-care (01) ==
LOC: ED 11:16
PROVIDERS: Emergency Medicine
DX: N36.8 Other specified disorders of urethra (principal); I10 Essential (primary) hypertension; F17.200 Nicotine dependence, unspecified, uncomplicated; Z88.8 Allergy status to other drugs, medicaments and biological substances; Z79.899 Other long term (current) drug therapy
CPT/HCPCS: 81001; 99283

== ENCOUNTER 2024-04-12 09:47 | Emergency (ER) | payer MEDICARE, OTHER ==
[~2024-04-12] VITALS: Ht 182.9 cm; Wt 77.5 kg
[2024-04-12] MEDS ORDERED: ondansetron HCL 4 MG/2 ML VIAL IV ONE (10:15)
[2024-04-12 10:42] LABS: BASOPHILS 0.5 % (0-2); EOSINOPHILS 0.5 % (0-6); HEMATOCRIT 53.2 % (35.0-50.0); HEMOGLOBIN 18.5 g/dL (12.0-18.0); LYMPHOCYTES 8.6 % (24-44); MCH 30.7 (27-36); MCHC 34.7 g/dl (30-36); MCV 88.3 fl (81-99); MONOCYTES 2.4 % (0-12); PLATELET COUNT 299 K/uL (140-440); RBC 6.03 M/ul (4.3-5.7); RDW 14.8 (10.5-15.0)
[2024-04-12] MEDS ORDERED: diphenhydrAMINE HCL 50 MG/ML VIAL IV ONE (11:00)
[2024-04-12] MEDS ORDERED: PROCHLORPERAZINE EDISYLATE 10 MG/2 ML VIAL IV ONE (11:00)
[2024-04-12] MEDS ORDERED: MORPHINE SULFATE 4 MG/ML VIAL IV ONE (11:00)
[2024-04-12] MEDS ORDERED: SODIUM CHLORIDE 0.9% 1,000 ML IV PRN (11:00)
[2024-04-12 11:06] LABS: ALBUMIN 4.6 g/dL (3.4-5.0); ALBUMIN/GLOBULIN RATIO 1.15 (1.1-2.4); ANION GAP 14.5 (7-21); BILIRUBIN, TOTAL 0.4 mg/dL (0.2-1.0); BUN/CREATININE RATIO 26.76 (6.0-28.6); CALCIUM 10.7 mg/dL (8.5-10.1); CREATININE, SERUM 0.71 mg/dL (0.70-1.30); POTASSIUM 4.5 mmol/L (3.5-5.1); PROTEIN, TOTAL 8.6 g/dL (6.4-8.2)
[2024-04-12 12:59] LABS: BILIRUBIN, URINE POSITIVE (negative); BLOOD/HGB, URINE NEGATIVE (Negative); KETONE, URINE SMALL (Negative); LEUK ESTERASE, URINE NEGATIVE (negative); NITRITE, URINE NEGATIVE (negative)
[2024-04-12 13:09] LABS: BACTERIA, URINE 1+ /hpf (negative); CASTS, URINE NONE SEEN \\lpf; COLLECTION TYPE, URINE CLEAN CATCH; EPITHELIAL CELLS, URINE SQUAMOUS 1+ /lpf (0-1+); REFLEX CULTURE, URINE No (No)
[2024-04-12 13:10] LABS: CRYSTALS, URINE AMORPHOUS PHOSPH 1+ (0-1+)
[2024-04-12] MEDS ORDERED: ONDANSETRON HCL4 MG PO (13:47)
[2024-04-12 13:50] VITALS: BP 128/89
== END 2024-04-12 13:50 | disposition home or self-care (01) ==
LOC: ED 09:47
PROVIDERS: Emergency Medicine
DX: R11.2 Nausea with vomiting, unspecified (principal); I10 Essential (primary) hypertension; F17.200 Nicotine dependence, unspecified, uncomplicated; Z88.8 Allergy status to other drugs, medicaments and biological substances; Z79.899 Other long term (current) drug therapy
CPT/HCPCS: 36415; 80053; 81001; 83690; 85025; 96374; 96375; 99284-25; J0780; J1200; J2270; J2405; J7030

== ENCOUNTER 2024-04-19 07:40 | Day surgery (SDC) | payer MEDICARE, OTHER ==
[2024-04-16 13:08] VITALS: BP 126/79
[~2024-04-19] VITALS: Ht 182.9 cm; Wt 81.8 kg
[~2024-04-19 07:40] MED LIST changes: +IBLOOD GLUCOSE TEST STRIP 1 EA TEST VI PRN; +LACTATED RINGER'S 1,000 ML IV SCH; +LIDOCAINE HCL 1% 5 ML SDV INJ ONE; +MIDAZOLAM HCL 5 MG/5 ML VIAL IV PRN; +NICOTINE LOZENGE2 M2 BC; +NICOTINE PATCH1 EACH TD; +fentaNYL citrate 100 MCG/2 ML VIAL IV PRN
[2024-04-19 07:48] VITALS: BP 144/90
[2024-04-19] MEDS ORDERED: propofoL 200 MG/20 ML VIAL ONE ×2 (07:56→09:30)
[2024-04-19] MEDS ORDERED: LIDOCAINE HCL 2% 5 ML SDV ONE (07:57)
--- NOTE | 2024-04-19 09:15 | NUR ---
PT NOT AVAILABLE FOR VISIT. PROVIDED PRAYER.
--- NOTE | 2024-04-19 10:06 | NUR ---
04/19/24 1006 Sheets,Cassy 0948 PT ARRIVED TO PACU WITH 2L NC IN PLACE, RESP EVEN AND UNLABORED. PT MOVING AROUND IN BED WITH EYES CLOSED, GRABBING AT HIS FACE. 0952 PT OPENS HIS EYES AND IS REORIENTED TO PACU. PT ROLLS TO HIS BACK PT GRIMACING AND REPORTS ABD PAIN, EDUCATION GIVEN ON PASSING GAS AND IS ENCOURAGED TO DO SO. 0954 O2 REMOVED. 1002 PT ROLLED TO SIDE SUGGESTED TO HELP PASS GAS. WARM BLACKETS GIVEN PER REQUEST. 1005 MD AT BEDSIDE TALKING TO PT. PT REPORTS PAIN IS "A LITTLE BATTER" WITH PASSING GAS.
[2024-04-19 10:22] VITALS: BP 157/106
--- NOTE | 2024-04-19 11:08 | OR ---
[facility] [address], [place] [address] Signed DATE OF OPERATION: 04/19/2024 SURGEON: Fadi Bradley MD PREOPERATIVE DIAGNOSES: 1. Personal history of multiple colonic polyps starting in 2016 at age 49. 2. Tattoo at 25 cm. 3. Diverticulosis. 4. Internal hemorrhoids. 5. A paternal uncle with colon cancer age 58. POSTOPERATIVE DIAGNOSES: 1. 4 mm polyps x4 at 7 to 10 cm in rectum. 2. 7 mm polyp at 23 cm in sigmoid colon (snare). 3. 5 mm polyp at mid right colon. 4. 6 mm polyp at 30 cm in sigmoid colon (snare). 5. Tattoo at 25 cm. 6. Minimal to moderate left-sided diverticulosis. 7. Minimal to moderate internal hemorrhoids. PROCEDURE: Colonoscopy, snare polypectomy and hot biopsy. ESTIMATED BLOOD LOSS: None. INDICATIONS: Davian is a 58-year-old gentleman, asked to see me for his third colonoscopy. I helped him in 2016 at the age of 49 and again in 2019 at the age of 53. He has had multiple adenomatous and hyperplastic polyps removed. We left a tattoo back at 25 cm. He does have diverticulosis. He has internal hemorrhoids. He has a long history of substance abuse, which is improved. He is now using marijuana on a daily basis. The Versed and fentanyl were not enough for him. We had to use propofol infusion. In that regard, he needed propofol again today. We also know his paternal uncle who is the twin brother of his father had colon cancer at age 58 and from that colon cancer. Davian does not have any specific lower GI complaints. He is very aware of our bowel prep. 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 He understands an adult person has to take home afterwards. He had expressed understanding and wished to proceed. Electronically Signed By: FADI BRADLEY MD 04/19/24 1108 PATIENT NAME: DAVIAN PRINCE OPERATIVE REPORT DATE OF : 67 REPORT #: [id number] PHYSICIAN: FADI BRADLEY MD PCP: JOJO BORGES DO REPORT IS CONFIDENTIAL AND NOT TO BE RELEASED WITHOUT AUTHORIZATION [facility] [address] [place] [id number] Signed DESCRIPTION OF PROCEDURE: Davian was taken into our endoscopy suite and placed in the left lateral decubitus position. He was given monitored anesthesia care propofol infusion per our nurse district manager. A digital rectal exam was performed. Really not anything in the way of external hemorrhoids. He had good sphincter tone. There were no masses. The adult colonoscope was introduced and advanced under direct visualization of camera. It took a little extra propofol and some abdominal compression to get the scope around into the cecum itself. His prep was good. We could easily see the appendiceal orifice and ileocecal valve. The scope was then slowly withdrawn. The above-mentioned polyps were taken out with the help of hot biopsy forceps or the snare. We did see the tattoo back at 25 cm. That area was quite unremarkable. He does have diverticula in the left and sigmoid colon. They were moderate in size, few in number and scattered about. In the rectum, the scope was retroflexed. He does have minimal to moderate internal hemorrhoid columns. After this the gas was suctioned out, colonoscope removed. Davian tolerated the procedure quite well. RECOMMENDATIONS: I will see Davian back in my office in 7 to 14 days to review his results. I suspect he will stay on the five year rotation. Fadi Bradley MD [facility] /[id number] cc: DO Fadi Stearns MD Copies: JOJO BORGES ANDREW L MD ~ Electronically Signed By: FADI BRADLEY MD 04/19/24 1108 PATIENT NAME: DAVIAN PRINCE OPERATIVE REPORT DATE OF : 67 REPORT #: [id number] PHYSICIAN: FADI BRADLEY MD PCP: JOJO BORGES DO REPORT IS CONFIDENTIAL AND NOT TO BE RELEASED WITHOUT AUTHORIZATION
--- NOTE | 2024-04-23 12:40 | PATH ---
[facility] [address] [facility] [place] [address] Signed SPECIMEN(S): A RECTAL POLYP, 7 CM SPECIMEN(S): B SIGMOID POLYP, 23 CM SPECIMEN(S): C MID ASCENDING POLYP SPECIMEN(S): D SIGMOID POLYP, 30 CM SPECIMEN SOURCE: A. RECTAL POLYP, 7 CM B. SIGMOID POLYP, 23 CM C. MID ASCENDING POLYP D. SIGMOID POLYP, 30 CM CLINICAL HISTORY: History of polyps FINAL PATHOLOGIC DIAGNOSIS: A. Rectal polyp at 7 cm: - Fragments of tubular adenoma. B. Sigmoid polyp at 23 cm: - Fragments of tubular adenoma. C. Mid ascending colon polyp: - Tubular adenoma. D. Sigmoid polyp at 30 cm: - Fragments of tubular adenoma. AMB MICROSCOPIC EXAMINATION: Histologic sections of all submitted blocks are examined by light microscopy. These findings, together with the gross examination, support the pathologic diagnosis. GROSS DESCRIPTION: A. The specimen, labeled and designated "Montalvo, rectal polyp, 7 cm," is received in formalin and consists of five miguel soft tissue fragments, ranging from 0.2-0.3 cm. Entirely submitted in (A1). B. The specimen, labeled and designated "Montalvo, sigmoid polyp, 23 cm," is received in formalin and consists of four miguel soft tissue fragments, ranging from 0.3-1.0 cm. Entirely submitted in (B1). C. The specimen, labeled and designated "Montalvo, midascending polyp," is received in formalin and consists of one miguel soft tissue fragment, 0.3 cm. Entirely submitted in (C1). D. The specimen, labeled and designated "Montalvo, sigmoid polyp, 30 cm," is PATIENT NAME: DARIA MONTALVO PATHOLOGY DATE OF : 67 REPORT #: [id number] PHYSICIAN: JOLEEN GILBERT PCP: JOJO BORGES DO REPORT IS CONFIDENTIAL AND NOT TO BE RELEASED WITHOUT AUTHORIZATION [facility] [address] [place], [place] [address] Signed received in formalin and consists of three miguel soft tissue fragments, ranging from 0.3-0.7 cm. Entirely submitted in (D1). VB (under the direct supervision of a pathologist) The Gross Description was prepared using a voice recognition system. The report was reviewed for accuracy; however, sound-alike word errors, addition and/or deletions may occur. If there is any question about this report, please contact Client Services. ADDITIONAL NOTES: Immunohistochemical and/or in situ hybridization studies if performed in this case included appropriate positive controls that reacted as expected. This test was developed and its performance characteristics determined by [facility]. It has not been cleared or approved by the U.S. Food and Drug Administration. The FDA has determined that such clearance or approval is not necessary. This test is used for clinical purposes. It should not be regarded as investigational or for research. [facility] is certified under the Clinical Laboratory Improvement Amendments of 1988 (CLIA) as qualified to perform high complexity clinical laboratory testing. PERFORMING LABORATORY: Technical component was performed by [facility], [address] [place] [id number] (CLIA# [id number]). Professional interpretation was performed by [facility] - [address] [id number] Diagnostician: Lala Zamarripa MD Pathologist Electronically Signed 04/23/2024 Copies: ~ PATIENT NAME: DARIA MONTALVO PATHOLOGY DATE OF : 67 REPORT #: [id number] PHYSICIAN: JOLEEN GILBERT PCP: JOJO BORGES DO REPORT IS CONFIDENTIAL AND NOT TO BE RELEASED WITHOUT AUTHORIZATION
== END 2024-04-19 10:30 | disposition home or self-care (01) ==
LOC: DS 07:40
PROVIDERS: ATTEND Colon & Rectal Surgery
PROC: 0DBE8ZZ Excision of Large Intestine, Via Natural or Artificial Opening Endoscopic (ICD-10-PCS; 2024-04-19)
PROC: 0DBN8ZZ Excision of Sigmoid Colon, Via Natural or Artificial Opening Endoscopic (ICD-10-PCS; 2024-04-19)
PROC: 0DBP8ZZ Excision of Rectum, Via Natural or Artificial Opening Endoscopic (ICD-10-PCS; 2024-04-19)
PROC: 0DBF8ZZ Excision of Right Large Intestine, Via Natural or Artificial Opening Endoscopic (ICD-10-PCS; principal; 2024-04-19 09:00)
DX: D12.2 Benign neoplasm of ascending colon (principal); D12.5 Benign neoplasm of sigmoid colon; D12.8 Benign neoplasm of rectum; K64.8 Other hemorrhoids; K57.30 Diverticulosis of large intestine without perforation or abscess without bleeding; F12.99 Cannabis use, unspecified with unspecified cannabis-induced disorder; Z80.0 Family history of malignant neoplasm of digestive organs
CPT/HCPCS: 00811; 88305; J2003; J2704